=== PATIENT | female | born 1995 | race Caucasian/White ===

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

== ENCOUNTER 2017-01-13 18:34 | Emergency (ER) | payer OTHER ==
[~2017-01-13] VITALS: Wt 54.4 kg
[~2017-01-13 18:34] MED LIST changes: +FLUCONAZOLE100 MG PO
[2017-01-13] MEDS ORDERED: AUGMENTIN 875-875 MG PO (19:36)
== END 2017-01-13 19:42 | disposition home or self-care (01) ==
LOC: ED 18:34
DX: J06.9 Acute upper respiratory infection, unspecified (principal); Z88.1 Allergy status to other antibiotic agents

== ENCOUNTER 2017-08-27 03:49 | Emergency (ER) | payer OTHER ==
[~2017-08-27] VITALS: Ht 170.1 cm; Wt 57.2 kg
[~2017-08-27 03:49] MED LIST changes: +AUGMENTIN 875-875 MG PO
[2017-08-27 04:18] LABS: BILIRUBIN NEGATIVE (NEGATIVE); BLOOD NEGATIVE (NEGATIVE); CLARITY SL CLOUDY (CLEAR); COLOR YELLOW (YELLOW); GLUCOSE NEGATIVE (NEGATIVE); KETONE TRACE (NEGATIVE); LEUKO ESTERASE TRACE (NEGATIVE); NITRITE NEGATIVE (NEGATIVE); PH 6.5 (5.0-9.0); SPECIFIC GRAVITY 1.015 (1.005-1.030)
[2017-08-27 04:25] LABS: BACTERIA 2+; EPITHELIAL CELLS 20-25
[2017-08-27] MEDS ORDERED: CIPRO500 MG PO (06:10)
== END 2017-08-27 06:12 | disposition home or self-care (01) ==
LOC: ED 03:49
PROVIDERS: Emergency Medicine
DX: N39.0 Urinary tract infection, site not specified (principal); R19.7 Diarrhea, unspecified; R11.10 Vomiting, unspecified; F17.200 Nicotine dependence, unspecified, uncomplicated; Z88.1 Allergy status to other antibiotic agents

== ENCOUNTER 2017-09-02 12:08 | Emergency (ER) | payer OTHER ==
[~2017-09-02] VITALS: Ht 170.1 cm; Wt 57.2 kg
[2017-09-02] MEDS ORDERED: VIBRAMYCIN100 MG PO (13:07)
== END 2017-09-02 14:08 | disposition home or self-care (01) ==
LOC: ED 12:08
DX: A74.9 Chlamydial infection, unspecified (principal); F17.200 Nicotine dependence, unspecified, uncomplicated; Z88.1 Allergy status to other antibiotic agents

== ENCOUNTER 2017-09-23 11:29 | Emergency (ER) | payer OTHER ==
[~2017-09-23] VITALS: Ht 170.1 cm; Wt 54.4 kg
[~2017-09-23 11:29] MED LIST changes: +VIBRAMYCIN100 MG PO
[2017-09-23 12:05] LABS: BILIRUBIN NEGATIVE (NEGATIVE); BLOOD 2+ (NEGATIVE); CLARITY CLOUDY (CLEAR); COLOR YELLOW (YELLOW); GLUCOSE NEGATIVE (NEGATIVE); KETONE NEGATIVE (NEGATIVE); LEUKO ESTERASE TRACE (NEGATIVE); NITRITE NEGATIVE (NEGATIVE); PH 6.5 (5.0-9.0); SPECIFIC GRAVITY 1.015 (1.005-1.030); UROBILINOGEN 0.2 E.U./dl (0.2-1.0)
[2017-09-23 12:21] LABS: BACTERIA 2+; MUCOUS 1+
== END 2017-09-23 14:38 | disposition home or self-care (01) ==
LOC: ED 11:29
PROVIDERS: Emergency Medicine
DX: N89.8 Other specified noninflammatory disorders of vagina (principal); R10.2 Pelvic and perineal pain; Z98.890 Other specified postprocedural states; Z88.1 Allergy status to other antibiotic agents

== ENCOUNTER 2017-10-16 20:47 | Emergency (ER) | payer OTHER ==
[~2017-10-16] VITALS: Ht 170.1 cm; Wt 57.2 kg
[2017-10-16 21:09] LABS: BILIRUBIN NEGATIVE (NEGATIVE); BLOOD 1+ (NEGATIVE); CLARITY CLOUDY (CLEAR); COLOR YELLOW (YELLOW); GLUCOSE NEGATIVE (NEGATIVE); KETONE NEGATIVE (NEGATIVE); LEUKO ESTERASE TRACE (NEGATIVE); NITRITE NEGATIVE (NEGATIVE); SPECIFIC GRAVITY >= 1.030 (1.005-1.030)
[2017-10-16 21:15] LABS: BACTERIA 4+; EPITHELIAL CELLS 20-25; RBC 0-2 rbc/hpf (0-2)
[2017-10-16 21:16] LABS: MUCOUS TRACE
[2017-10-16] MEDS ORDERED: SUPRAX400 M2 PO (21:45)
[2017-10-16] MEDS ORDERED: DOXYCYCLINE HY100 M3 PO (21:45)
[2017-10-16] MEDS ORDERED: ANAPROX DS550 MG PO (21:45)
== END 2017-10-16 22:02 | disposition home or self-care (01) ==
LOC: ED 20:47
PROVIDERS: Emergency Medicine Emergency Medical Services
DX: N72 Inflammatory disease of cervix uteri (principal); Z98.890 Other specified postprocedural states; Z88.1 Allergy status to other antibiotic agents

== ENCOUNTER 2018-01-09 14:43 | Emergency (ER) | payer SELFPAY ==
[~2018-01-09] VITALS: Ht 170.1 cm; Wt 57.2 kg
[~2018-01-09 14:43] MED LIST changes: +ANAPROX DS550 MG PO; +DOXYCYCLINE HY100 M3 PO; +SUPRAX400 M2 PO
[2018-01-09 15:15] LABS: BILIRUBIN NEGATIVE (NEGATIVE); BLOOD 3+ (NEGATIVE); CLARITY CLOUDY (CLEAR); COLOR RED (YELLOW); GLUCOSE TRACE (NEGATIVE); KETONE 3+ (NEGATIVE); NITRITE POSITIVE (NEGATIVE); PH 6.5 (5.0-9.0); UROBILINOGEN >= 8.0 E.U./dl (0.2-1.0)
[2018-01-09 15:15] LABS: BASO % 0.5 % (0.0-1.0); EOS # 0.2 10*3/uL (0.0-0.4); EOS % 2.2 % (1.0-4.0); HEMATOCRIT 41.8 % (37.0-47.0); HEMOGLOBIN 13.8 g/dl (12.0-16.0); LYMPH # 2.7 10*3/uL (1.3-4.4); LYMPH % 34.9 % (27.0-41.0); MEAN CELL VOLUME 91.1 fl (81.0-99.0); MEAN CORPUSCULAR HGB 30.1 pg (27.0-31.0); MEAN PLATELET VOLUME 9.7 fl (9.6-12.3); MONO # 0.6 10*3/uL (0.1-1.0); MONO % 7.9 % (3.0-9.0); NEUT # 4.1 10*3/uL (2.3-7.9); NEUT % 54.2 % (47.0-73.0); PLATELET COUNT AUTOMATED 231 10*3/uL (130-400); RED BLOOD COUNT 4.59 10*6/uL (4.10-5.10); RED CELL DISTRI WIDTH 13.4 % (0-14.5); WHITE BLOOD COUNT 7.6 10*3/uL (4.8-10.8)
[2018-01-09 15:16] LABS: LEUKO ESTERASE 2+ (NEGATIVE)
[2018-01-09 15:25] LABS: RBC TNTC rbc/hpf (0-2)
[2018-01-09] MEDS ORDERED: PYRIDIUM200 M1 PO (15:32)
[2018-01-09] MEDS ORDERED: SEPTDS PO ×2 (15:32→15:40)
== END 2018-01-09 20:15 | disposition short-term general hospital (02) ==
LOC: ED 14:43
PROVIDERS: Physician Assistant
DX: N93.9 Abnormal uterine and vaginal bleeding, unspecified (principal); Z88.1 Allergy status to other antibiotic agents

== ENCOUNTER 2018-01-14 11:11 | Emergency (ER) | payer SELFPAY ==
[~2018-01-14] VITALS: Ht 170.1 cm; Wt 57.2 kg
[~2018-01-14 11:11] MED LIST changes: +SEPTDS PO
[2018-01-14] MEDS ORDERED: DOXYCYCLINE100 M3 PO (14:44)
== END 2018-01-14 15:20 | disposition home or self-care (01) ==
LOC: ED 11:11
DX: A54.03 Gonococcal cervicitis, unspecified (principal); Z98.890 Other specified postprocedural states; Z79.899 Other long term (current) drug therapy; Z88.1 Allergy status to other antibiotic agents

== ENCOUNTER → 2018-02-03 | Outpatient (CLI) | payer OTHER ==
[~2018-02-03] MED LIST changes: +PROVENTIL HFA6.7 GM INH
== END | disposition home or self-care (01) ==
LOC: RESCLI 02:04
DX: N92.6 Irregular menstruation, unspecified (principal); A54.00 Gonococcal infection of lower genitourinary tract, unspecified

== ENCOUNTER 2018-02-07 12:19 | Emergency (ER) | payer OTHER ==
[~2018-02-07] VITALS: Wt 49.9 kg
[~2018-02-07 12:19] MED LIST changes: -PROVENTIL HFA6.7 GM INH
[2018-02-07] MEDS ORDERED: PROVENTIL HFA6.7 GM INH (12:38)
== END 2018-02-07 14:40 | disposition home or self-care (01) ==
LOC: ED 12:19
DX: S90.01XA Contusion of right ankle, initial encounter (principal); S90.31XA Contusion of right foot, initial encounter; Z98.890 Other specified postprocedural states; Z79.899 Other long term (current) drug therapy; Z88.1 Allergy status to other antibiotic agents; Z88.6 Allergy status to analgesic agent; W21.07XA Struck by softball, initial encounter; Y93.64 Activity, baseball; Y92.89 Other specified places as the place of occurrence of the external cause; Y99.9 Unspecified external cause status

== ENCOUNTER → 2018-02-10 | Outpatient (CLI) | payer OTHER ==
[~2018-02-10] MED LIST changes: +PROVENTIL HFA6.7 GM INH
== END | disposition home or self-care (01) ==
LOC: RAD 13:57
DX: S90.01XA Contusion of right ankle, initial encounter (principal); X58.XXXA Exposure to other specified factors, initial encounter; Y92.89 Other specified places as the place of occurrence of the external cause; Y93.89 Activity, other specified; Y99.8 Other external cause status

== ENCOUNTER → 2018-02-17 | Outpatient (CLI) | payer OTHER | END | disposition home or self-care (01) | LOC: RESCLI 01:22 | DX: O26.851 Spotting complicating pregnancy, first trimester (principal); O34.81 Maternal care for other abnormalities of pelvic organs, first trimester; N83.201 Unspecified ovarian cyst, right side; S93.491D Sprain of other ligament of right ankle, subsequent encounter; S90.01XD Contusion of right ankle, subsequent encounter; R06.02 Shortness of breath; Z87.891 Personal history of nicotine dependence; Z3A.00 Weeks of gestation of pregnancy not specified; X58.XXXD Exposure to other specified factors, subsequent encounter ==

== ENCOUNTER → 2018-03-15 | Outpatient (CLI) | payer OTHER | END | disposition home or self-care (01) | LOC: US 02:35 | DX: Z34.01 Encounter for supervision of normal first pregnancy, first trimester (principal); Z3A.08 8 weeks gestation of pregnancy ==

== ENCOUNTER 2019-08-17 17:31 | Emergency (ER) | payer OTHER ==
[~2019-08-17] VITALS: Ht 170.1 cm; Wt 52.6 kg
[2019-08-17] MEDS ORDERED: PREDNISONE20 M1 PO (18:57)
[2019-08-17] MEDS ORDERED: MUCINEX DM ER1 EACH PO (18:57)
[2019-08-17] MEDS ORDERED: TESSALON PERLE100 M1 PO (18:57)
== END 2019-08-17 19:01 | disposition home or self-care (01) ==
LOC: ED 17:31
DX: J40 Bronchitis, not specified as acute or chronic (principal); Z88.1 Allergy status to other antibiotic agents; Z88.8 Allergy status to other drugs, medicaments and biological substances; Z79.899 Other long term (current) drug therapy

== ENCOUNTER 2019-09-09 15:02 | Emergency (ER) | payer OTHER ==
[~2019-09-09] VITALS: Ht 170.1 cm; Wt 54.4 kg
[~2019-09-09 15:02] MED LIST changes: +MUCINEX DM ER1 EACH PO; +PREDNISONE20 M1 PO; +TESSALON PERLE100 M1 PO
[2019-09-09 15:22] LABS: BILIRUBIN 1+ (NEGATIVE); BLOOD NEGATIVE (NEGATIVE); CLARITY CLOUDY (CLEAR); COLOR YELLOW (YELLOW); GLUCOSE NEGATIVE (NEGATIVE); KETONE 1+ (NEGATIVE); LEUKO ESTERASE TRACE (NEGATIVE); NITRITE NEGATIVE (NEGATIVE); SPECIFIC GRAVITY >= 1.030 (1.005-1.030); UROBILINOGEN 0.2 E.U./dl (0.2-1.0)
[2019-09-09 15:31] LABS: BACTERIA 2+; EPITHELIAL CELLS TNTC; WBC 16-20 wbc/hpf (0-5)
[2019-09-09 15:32] LABS: MUCOUS 1+
[2019-09-09] MEDS ORDERED: DICLEGIS DR 101 EACH PO (16:13)
[2019-09-09] MEDS ORDERED: CEPHALEXIN500 M1 PO (16:13)
== END 2019-09-09 16:23 | disposition home or self-care (01) ==
LOC: ED 15:02
PROVIDERS: Nurse Practitioner Family
DX: O23.41 Unspecified infection of urinary tract in pregnancy, first trimester (principal); Z3A.09 9 weeks gestation of pregnancy; Z88.1 Allergy status to other antibiotic agents; Z88.6 Allergy status to analgesic agent; Z79.899 Other long term (current) drug therapy

== ENCOUNTER → 2019-09-21 | Outpatient (CLI) | payer OTHER ==
[~2019-09-21] MED LIST changes: +CEPHALEXIN500 M1 PO; +DICLEGIS DR 101 EACH PO
[2019-09-21 11:21] LABS: BILIRUBIN NEGATIVE (NEGATIVE); BLOOD NEGATIVE (NEGATIVE); CLARITY SL CLOUDY (CLEAR); COLOR YELLOW (YELLOW); GLUCOSE NEGATIVE (NEGATIVE); KETONE NEGATIVE (NEGATIVE); LEUKO ESTERASE 1+ (NEGATIVE); NITRITE NEGATIVE (NEGATIVE); PH 6.5 (5.0-9.0); UROBILINOGEN 0.2 E.U./dl (0.2-1.0)
[2019-09-21 11:22] LABS: BASO # 0.1 10*3/uL (0.0-0.1); BASO % 0.6 % (0.0-1.0); EOS # 0.2 10*3/uL (0.0-0.4); EOS % 2.1 % (1.0-4.0); HEMOGLOBIN 13.4 g/dl (12.0-16.0); LYMPH # 1.7 10*3/uL (1.3-4.4); LYMPH % 18.2 % (27.0-41.0); MEAN CELL VOLUME 89.3 fl (81.0-99.0); MEAN CORPUSCULAR HGB 29.2 pg (27.0-31.0); MEAN CORPUSCULAR HGB CONC 32.7 g/dl (33.0-37.0); MEAN PLATELET VOLUME 9.9 fl (9.6-12.3); MONO # 0.6 10*3/uL (0.1-1.0); MONO % 6.4 % (3.0-9.0); NEUT # 6.9 10*3/uL (2.3-7.9); NEUT % 72.2 % (47.0-73.0); PLATELET COUNT AUTOMATED 261 10*3/uL (130-400); RED BLOOD COUNT 4.59 10*6/uL (4.10-5.10); RED CELL DISTRI WIDTH 15.4 % (0-14.5); WHITE BLOOD COUNT 9.6 10*3/uL (4.8-10.8)
[2019-09-21 11:48] LABS: ALBUMIN 3.7 gm/dl (3.1-4.5); ALKALINE PHOSPHATASE 44 U/L (45-117); BUN 8 mg/dl (7-24); CHLORIDE 106 mmol/L (98-107); CREATININE 0.65 mg/dL (0.55-1.02); POTASSIUM 4.1 mmol/L (3.5-5.1); SGOT/AST 14 IU/L (3-35); SGPT/ALT 20 U/L (12-78); SODIUM 138 mmol/L (136-145); TOTAL PROTEIN 7.7 gm/dL (6.4-8.2)
[2019-09-21 12:05] LABS: BACTERIA 3+
[2019-09-21 12:06] LABS: EPITHELIAL CELLS 30-40; WBC 31-40 wbc/hpf (0-5)
== END | disposition home or self-care (01) ==
LOC: RESCLI 01:35
PROVIDERS: Student in an Organized Health Care Education/Training Program
DX: Z33.1 Pregnant state, incidental (principal); J45.909 Unspecified asthma, uncomplicated; I38 Endocarditis, valve unspecified; R11.2 Nausea with vomiting, unspecified; Z79.899 Other long term (current) drug therapy; Z87.891 Personal history of nicotine dependence; Z88.1 Allergy status to other antibiotic agents

== ENCOUNTER 2019-10-16 19:07 | Emergency (ER) | payer OTHER ==
[~2019-10-16] VITALS: Ht 170.1 cm; Wt 54.4 kg
[2019-10-16 20:21] LABS: BILIRUBIN NEGATIVE (NEGATIVE); BLOOD NEGATIVE (NEGATIVE); CLARITY SL CLOUDY (CLEAR); COLOR YELLOW (YELLOW); GLUCOSE NEGATIVE (NEGATIVE); KETONE NEGATIVE (NEGATIVE); LEUKO ESTERASE TRACE (NEGATIVE); NITRITE NEGATIVE (NEGATIVE); UROBILINOGEN 0.2 E.U./dl (0.2-1.0)
[2019-10-16 20:30] LABS: BACTERIA 1+
[2019-10-16 20:50] LABS: BASO % 0.4 % (0.0-1.0); EOS # 0.1 10*3/uL (0.0-0.4); EOS % 1.2 % (1.0-4.0); HEMATOCRIT 33.3 % (37.0-47.0); HEMOGLOBIN 10.7 g/dl (12.0-16.0); LYMPH # 1.8 10*3/uL (1.3-4.4); LYMPH % 19.3 % (27.0-41.0); MEAN CELL VOLUME 88.3 fl (81.0-99.0); MEAN CORPUSCULAR HGB 28.4 pg (27.0-31.0); MEAN CORPUSCULAR HGB CONC 32.1 g/dl (33.0-37.0); MEAN PLATELET VOLUME 9.9 fl (9.6-12.3); MONO # 0.5 10*3/uL (0.1-1.0); MONO % 4.8 % (3.0-9.0); NEUT # 7.1 10*3/uL (2.3-7.9); NEUT % 73.9 % (47.0-73.0); PLATELET COUNT AUTOMATED 254 10*3/uL (130-400); RED BLOOD COUNT 3.77 10*6/uL (4.10-5.10); RED CELL DISTRI WIDTH 14.7 % (0-14.5); WHITE BLOOD COUNT 9.5 10*3/uL (4.8-10.8)
[2019-10-16 21:06] LABS: ALBUMIN 3.5 gm/dl (3.1-4.5); ALKALINE PHOSPHATASE 43 U/L (45-117); BUN 10 mg/dl (7-24); CHLORIDE 108 mmol/L (98-107); CREATININE 0.61 mg/dL (0.55-1.02); POTASSIUM 3.6 mmol/L (3.5-5.1); SGOT/AST 14 IU/L (3-35); SGPT/ALT 20 U/L (12-78); SODIUM 138 mmol/L (136-145)
== END 2019-10-17 03:56 | disposition home or self-care (01) ==
LOC: ED 19:07
PROVIDERS: Emergency Medicine
DX: O9A.211 Injury, poisoning and certain other consequences of external causes complicating pregnancy, first trimester (principal); S09.90XA Unspecified injury of head, initial encounter; O26.891 Other specified pregnancy related conditions, first trimester; R55 Syncope and collapse; Z88.1 Allergy status to other antibiotic agents; Z3A.10 10 weeks gestation of pregnancy; Z88.8 Allergy status to other drugs, medicaments and biological substances; W18.30XA Fall on same level, unspecified, initial encounter; Y93.89 Activity, other specified; Y92.89 Other specified places as the place of occurrence of the external cause; Y99.8 Other external cause status

== ENCOUNTER → 2021-03-11 | Outpatient (CLI) | payer OTHER | END | disposition home or self-care (01) | LOC: US 16:00 | PROVIDERS: ATTEND Nurse Practitioner Women's Health | DX: N92.6 Irregular menstruation, unspecified (principal) ==

== ENCOUNTER → 2021-05-10 | Outpatient (CLI) | payer OTHER | END | disposition home or self-care (01) | LOC: US 14:00 | PROVIDERS: ATTEND Nurse Practitioner Women's Health | DX: N83.201 Unspecified ovarian cyst, right side (principal) ==

== ENCOUNTER 2022-06-08 20:24 | Emergency (ER) | payer OTHER ==
[2022-06-08 20:46] LABS: BILIRUBIN Negative (Negative); BLOOD 3+ (Negative); CLARITY Turbid (Clear); COLOR Yellow (Yellow); GLUCOSE Negative (Negative); KETONE Negative (Negative); LEUKO ESTERASE 1+ (Negative); NITRITE Negative (Negative); PH 7.5 (4.5-8.0); UROBILINOGEN 0.2 E.U./dl (0.0-1.0)
[2022-06-08 21:00] LABS: BACTERIA 1+
[2022-06-08 21:21] LABS: BASO % 0.5 % (0.0-1.0); EOS # 0.2 10*3/uL (0.0-0.4); EOS % 3.3 % (1.0-4.0); HEMATOCRIT 35.5 % (37.0-47.0); LYMPH # 2.5 10*3/uL (1.3-4.4); LYMPH % 34.5 % (27.0-41.0); MEAN CELL VOLUME 89.6 fl (81.0-99.0); MEAN CORPUSCULAR HGB 28.5 pg (27.0-31.0); MEAN CORPUSCULAR HGB CONC 31.8 g/dl (33.0-37.0); MONO # 0.5 10*3/uL (0.1-1.0); MONO % 6.3 % (3.0-9.0); NEUT % 55.1 % (47.0-73.0); PLATELET COUNT AUTOMATED 198 10*3/uL (130-400); RED BLOOD COUNT 3.96 10*6/uL (4.10-5.10); RED CELL DISTRI WIDTH 15.5 % (0-14.5); WHITE BLOOD COUNT 7.3 10*3/uL (4.8-10.8)
[2022-06-08 21:37] LABS: ALKALINE PHOSPHATASE 46 U/L (45-117); BUN 17 mg/dl (7-24); CHLORIDE 110 mmol/L (98-107); CREATININE 0.76 mg/dL (0.55-1.02); POTASSIUM 3.7 mmol/L (3.5-5.1); SGOT/AST 11 IU/L (3-35); SGPT/ALT 17 U/L (12-78); SODIUM 142 mmol/L (136-145); TOTAL PROTEIN 6.4 gm/dL (6.4-8.2)
[2022-06-08 21:39] LABS: B-hCG (QUALITATIVE) NEGATIVE (NEGATIVE)
[2022-06-08] MEDS ORDERED: SEPTDS PO (22:08)
== END 2022-06-08 22:29 | disposition home or self-care (01) ==
LOC: ED 20:24
PROVIDERS: Nurse Practitioner Family
DX: N93.8 Other specified abnormal uterine and vaginal bleeding (principal); Z88.1 Allergy status to other antibiotic agents; Z88.8 Allergy status to other drugs, medicaments and biological substances; F17.200 Nicotine dependence, unspecified, uncomplicated

== ENCOUNTER 2022-08-17 16:00 | Emergency (ER) | payer OTHER ==
[~2022-08-17] VITALS: Wt 59.0 kg
[2022-08-17] MEDS ORDERED: AMOX-CLAV 875-1 EACH PO (16:29)
== END 2022-08-17 16:45 | disposition home or self-care (01) ==
LOC: ED 16:00
DX: J32.8 Other chronic sinusitis (principal); Z88.1 Allergy status to other antibiotic agents; Z88.8 Allergy status to other drugs, medicaments and biological substances